=== PATIENT | female | born 1970 | race Caucasian/White ===

== ENCOUNTER → 2017-01-08 | Outpatient (CLI) | payer BC ==
[~2017-01-08] MED LIST: DEXL60CA4 PO; LEVO88TA3 PO; PREG1CAP28 PO; VENL75CA73 PO
[2017-01-08 15:15] LABS: BLOOD UREA NITROGEN 12 mg/dl (7-18); BUN/CREATININE RATIO 17.1 (10-20); CALCIUM 9.3 mg/dl (8.5-10.1); CARBON DIOXIDE 28 mmol/L (21-32); CHLORIDE 104 mmol/L (98-107); CREATININE 0.67 mg/dl (0.60-1.20); GLUCOSE 91 mg/dl (70-99); POTASSIUM 4.1 mmol/L (3.5-5.1); SODIUM 141 mmol/L (136-145)
[2017-01-08 15:24] LABS: BASO % 0.1 %; BASO ABS # 0.01 K/uL (0-0.2); COMPLETE YES; HEMATOCRIT 38.5 % (37-47); IG% 0.3 %; LYMPH % 35.2 %; LYMPH ABS # 2.74 K/uL (1.2-3.4); MEAN CELL VOLUME 86.9 fL (80-100); MEAN CORPUSCULAR HEMOGLOBIN 28.7 pg (25-34); MEAN PLATELET VOLUME 13.2 fL (7.4-10.4); MONO % 9.2 %; NEUT % 55.2 %; PLATELET COUNT 189 K/uL (130-400); RED BLOOD COUNT 4.43 M/uL (4.2-5.4); WHITE BLOOD COUNT 7.79 K/uL (4.8-10.8)
== END | disposition home or self-care (01) ==
LOC: C.LAB1850 11:59
PROVIDERS: ATTEND Surgery
DX: Z01.812 Encounter for preprocedural laboratory examination (principal); K21.9 Gastro-esophageal reflux disease without esophagitis

== ENCOUNTER → 2017-01-11 | Outpatient (CLI) | payer OTHER ==
--- NOTE | 2017-01-11 15:37 | DIAGNOSTIC IMAGING REPORT ---
(CHEST) THORAX WITHOUT CLINICAL HISTORY: K27.9 Peptic ulcer [id number] EPIGASTRIC PAIN. HIATAL HERNIA. COMPARISON STUDY: No previous studies for comparison. CT DOSE: 1153.21 mGycm TECHNIQUE: CT of the thorax was performed from the thoracic inlet to the lung bases. Images are reviewed in the axial, sagittal, and coronal planes. IV contrast was not administered for this examination. A dose lowering technique was utilized adhering to the principles of ALARA. FINDINGS: Thyroid: Imaged portions of the thyroid gland are normal in appearance. Thoracic aorta: The thoracic aorta is normal in course and caliber, noting standard 3 vessel arch anatomy. Heart: The heart is normal in size and configuration, without pericardial effusion. Lungs and pleural spaces: No pleural effusions are visualized. There is no focal pulmonary consolidation. There are no suspicious pulmonary nodules. Mediastinum: There is no evidence of pathologic adenopathy Jordyn: There is no evidence of pathologic hilar adenopathy given the limitations of a noncontrast study Axilla: There is no nodes of pathologic axillary lymphadenopathy Upper abdomen: There is a to small to characterize 8 mm hypodensity within the left hepatic lobe. There is a hiatal hernia measuring approximately 4 cm in diameter. Skeletal structures: There is a bone island within the T4 vertebra. IMPRESSION: 1. No evidence of focal pulmonary consolidation 2. No pleural effusions 3. No evidence of pathologic adenopathy 4. Small to moderate hiatal hernia Electronically signed by: Sven Chu M.D. 01/11/2017 3:36 PM Dictated Date/Time: 01/11/2017 3:29 PM
--- NOTE | 2017-01-11 15:57 | DIAGNOSTIC IMAGING REPORT ---
ABD WITH ORAL CONT ONLY (CT) HISTORY: 46 years-old Female acute peptic ulcer disease COMPARISON: CT chest of same day TECHNIQUE: Multiple axial CT images of the abdomen were obtained following the administration of oral contrast only. A dose lowering technique was used consistent with the principals of KEEGAN. FINDINGS: Imaged lung bases are clear. There is no pneumoperitoneum or pneumatosis. The imaged inferior cardiac chambers are unremarkable. There are 2 low attenuating 6 mm lesions noted of the lateral left hepatic lobe are too small to characterize however suggest cysts on this noncontrast study. There is no intrahepatic biliary ductal dilation. The gallbladder, spleen, pancreas and adrenal glands are unremarkable. Peripherally calcified 8 mm splenic arterial aneurysm is noted on image 79 series 7. Bilateral kidneys and ureters are unremarkable. Aorta is normal in caliber. No bulky adenopathy. Small to moderate sized hiatal hernia is noted. No focal gastric wall thickening or inflammatory stranding surrounding the stomach identified. There is no small bowel dilation or focal wall thickening identified. Diastases recti with small fat filled periumbilical hernia, diastases 1.2 cm. The bones appear intact. Endplate degenerative changes are seen throughout the spine. IMPRESSION: 1. No acute intra-abdominal abnormality identified. 2. [id number] sized hiatal hernia. 3. Peripherally calcified 8 mm splenic arterial aneurysm. The above report was generated using voice recognition software. It may contain grammatical, syntax or spelling errors. Electronically signed by: Toño Flowers M.D. 01/11/2017 3:55 PM Dictated Date/Time: 01/11/2017 3:51 PM
== END | disposition home or self-care (01) ==
LOC: C.CTS 14:24
PROVIDERS: ATTEND Surgery
DX: K27.9 Peptic ulcer, site unspecified, unspecified as acute or chronic, without hemorrhage or perforation (principal); K44.9 Diaphragmatic hernia without obstruction or gangrene; I72.8 Aneurysm of other specified arteries

== ENCOUNTER 2017-01-17 05:31 | Observation (INO) | payer BC, OTHER ==
[2017-01-11 08:38] VITALS: BMI 37.0
[~2017-01-17] VITALS: Ht 160 cm; Wt 101.6 kg
[2017-01-17 05:44] VITALS: BP 130/62; PULSE 77; TEMP 37; O2SAT 98; BMI 37.0
[2017-01-17] MEDS ORDERED: LACTATED RINGER'S 1000ML 1,000 ML IV SCH (06:00)
[2017-01-17] MEDS ORDERED: DEXAMETHASONE SOD INJ 4 MG/ML VIAL ONE (06:52)
[2017-01-17] MEDS ORDERED: LIDOCAINE HCL 2% 2 ML VIAL (20MG/ML) ONE (06:52)
[2017-01-17] MEDS ORDERED: SODIUM CHLORIDE 0.9% INJ 10 ML VIAL ONE ×3 (06:52→09:23)
[2017-01-17] MEDS ORDERED: FENTANYL CITRATE INJ 50 MCG/1 ML 2 ML VIAL ONE (06:52)
[2017-01-17] MEDS ORDERED: MIDAZOLAM HCL 1 MG/ML 2ML VIAL ONE (06:52)
[2017-01-17] MEDS ORDERED: ONDANSETRON INJ 2 MG/ML 2 ML VIAL ONE ×2 (06:52→10:41)
[2017-01-17] MEDS ORDERED: GLYCOPYRROLATE INJ 0.2 MG/ML VIAL ONE ×2 (06:52→09:25)
[2017-01-17] MEDS ORDERED: NEOSTIGMINE METHYLSULFATE 5 MG/5 ML SYR ONE (06:52)
[2017-01-17] MEDS ORDERED: PROPOFOL IV EMULSION 10 MG/ML 20 ML VIAL IV ONE (06:52)
[2017-01-17] MEDS ORDERED: HYDROmorphone INJ 2 MG/ML SYR/VIAL ONE (06:52)
--- NOTE | 2017-01-17 07:09 | History & Physical Bridge Note ---
H&P Re-Evaluation Bridge Note: I have examined the patient, reviewed the History & Physical and in the interval since the performance of the History & Physical I have noted the following changes of clinical significance: No changes noted
[2017-01-17] MEDS ORDERED: ATROPINE SULFATE 0.1 MG/ML 5ML SYR IV PRN (08:30)
[2017-01-17] MEDS ORDERED: EpHEDrine SULFATE INJ 50 MG/ML AMP IV PRN (08:30)
[2017-01-17] MEDS ORDERED: ONDANSETRON INJ 2 MG/ML 2 ML VIAL IV PRN ×2 (08:30→11:45)
[2017-01-17] MEDS ORDERED: HYDROmorphone INJ 1 MG/ML SYR IV PRN (08:30)
[2017-01-17] MEDS ORDERED: FENTANYL CITRATE INJ 50 MCG/1 ML 2 ML VIAL IV PRN (08:30)
[2017-01-17] MEDS ORDERED: PHENYLEPHRINE 100MCG/ML 5ML SYR ONE (08:33)
[2017-01-17] MEDS ORDERED: PHENYLEPHRINE HCL INJ 10 MG/ML VIAL ONE (08:33)
[2017-01-17] MEDS ORDERED: CEFAZOLIN SOD 1 GM VIAL ONE (08:33)
[2017-01-17] MEDS ORDERED: EpHEDrine SULFATE 50MG/5ML SYR ONE (09:25)
[2017-01-17] MEDS ORDERED: EpINEphrine INJ 1MG/ML AMP 1 MG/ML AMP ONE (09:25)
[2017-01-17] MEDS ORDERED: ALBUMIN HUMAN 5% 12.5 GM/250 ML VIAL IV ONE (09:44)
[2017-01-17] MEDS ORDERED: KETOROLAC TROMETHAMINE 30 MG/ML VIAL ONE (11:33)
[2017-01-17] MEDS ORDERED: OXYCODONE HCL IR 5 MG TAB (IMMEDIATE RELEASE) PO PRN (11:45)
[2017-01-17] MEDS ORDERED: MoRPHine SULFATE 2 MG/ML CARP IV PRN (11:45)
[2017-01-17] MEDS ORDERED: CEFAZOLIN IV 2,000 MG in DEXTROSE 5% 50ML 100 ML IV SCH (11:45)
--- NOTE | 2017-01-17 12:36 | Anesthesiology Progress Note ---
Anesthesia Post Op Note Date & Time Jan 17, 2017 at 12:36 Vital Signs Pain Intensity: 0 Vital Signs Past 12 Hours Date Time Temp Pulse Resp B/P (MAP) Pulse Ox O2 Delivery O2 Flow Rate FiO2 01/17/17 12:30 69 16 112/73 95 Nasal Cannula 4 01/17/17 12:20 87 14 121/88 95 Oxymask 15 01/17/17 12:10 101 14 135/89 95 Oxymask 15 01/17/17 12:03 36.6 98 14 121/77 96 Oxymask 15 01/17/17 05:44 37.0 77 18 130/62 (84) 98 Room Air Notes Mental Status: alert / awake / arousable, participated in evaluation Pt Amnestic to Procedure: Yes Nausea / Vomiting: adequately controlled Pain: adequately controlled Airway Patency, RR, SpO2: stable & adequate BP & HR: stable & adequate Hydration State: stable & adequate Anesthetic Complications: no major complications apparent
[2017-01-17 13:44] VITALS: BP 127/76; PULSE 88; TEMP 36.8; O2SAT 98; Ht 160 cm; Wt 101.6 kg
[2017-01-17] MEDS: D5W AND 1/2NSS 1,000 ML IV SCH (14:58)
[2017-01-17] MEDS: ACETAMINOPHEN IV 1,000 MG in EMPTY BAG 0 ML IV SCH ×2 (14:58→21:27)
[2017-01-17] MEDS: KETOROLAC TROMETHAMINE 15 MG/ML VIAL IV. SCH ×2 (15:05→21:29)
[2017-01-17] MEDS: METOCLOPRAMIDE HCL INJ 5 MG/ML 2 ML VIAL IV. SCH ×2 (15:05→21:27)
[2017-01-17] MEDS ORDERED: IV FLUIDS COMPLETED PRN (15:15)
[2017-01-17 16:00] VITALS: O2SAT 98
[2017-01-17 16:11] VITALS: BP 112/72; PULSE 108; TEMP 36.6; O2SAT 96
[2017-01-17] MEDS: CEFAZOLIN IV 2,000 MG in SYRINGE 0 ML IV SCH (16:20)
[2017-01-17] MEDS: DOCUSATE SODIUM 100 MG CAP PO SCH (19:19)
[2017-01-17] MEDS: PREGABALIN 75 MG CAP PO SCH (19:27)
[2017-01-17 19:28] VITALS: BP 106/61; PULSE 93; TEMP 36.7; O2SAT 93
[2017-01-17 23:44] VITALS: BP 110/73; PULSE 100; TEMP 37; O2SAT 92
[2017-01-18] MEDS: CEFAZOLIN IV 2,000 MG in SYRINGE 0 ML IV SCH (00:01)
[2017-01-18] MEDS: D5W AND 1/2NSS 1,000 ML IV SCH (00:46)
[2017-01-18 03:45] VITALS: BP 108/68; PULSE 112; TEMP 36.9; O2SAT 93
[2017-01-18] MEDS: KETOROLAC TROMETHAMINE 15 MG/ML VIAL IV. SCH (05:49)
[2017-01-18] MEDS: ACETAMINOPHEN IV 1,000 MG in EMPTY BAG 0 ML IV SCH ×2 (05:49→09:34)
[2017-01-18] MEDS: METOCLOPRAMIDE HCL INJ 5 MG/ML 2 ML VIAL IV. SCH (05:49)
[2017-01-18] MEDS ORDERED: LEVOTHYROXINE 88 MCG TAB PO SCH (06:00)
[2017-01-18 07:24] LABS: HEMATOCRIT 33.5 % (37-47); MEAN CORPUSCULAR HEMOGLOBIN 28.1 pg (25-34); MEAN CORPUSCULAR HGB CONC 32.2 g/dl (32-36); MEAN PLATELET VOLUME 11.9 fL (7.4-10.4); PLATELET COUNT 177 K/uL (130-400); RED BLOOD COUNT 3.85 M/uL (4.2-5.4); WHITE BLOOD COUNT 13.85 K/uL (4.8-10.8)
[2017-01-18 07:33] VITALS: BP 120/75; PULSE 91; TEMP 36.7; O2SAT 93
[2017-01-18 07:36] LABS: PROTHROMBIN TIME (PATIENT) 10.6 SECONDS (9.0-12.0)
[2017-01-18 08:01] LABS: CREATININE 0.69 mg/dl (0.60-1.20)
[2017-01-18] MEDS ORDERED: RXC5 PO ×2 (08:26)
--- NOTE | 2017-01-18 08:28 | Discharge Instructions ---
Discharge Instructions Date of Service Jan 18, 2017. Admission Reason for Admission: Esophageal Reflux, Hiatal Hernia Discharge Discharge Diagnosis / Problem: GERD, Hiatal hernia Discharge Goals Goal(s): Decrease discomfort (Use pain medications as needed.) Activity Recommendations Activity Limitations: as noted below Lifting Limitations: gradually increase as tolerated Exercise/Sports Limitations: gradually increase as tolerated May Resume Sexual Activity: when tolerated Shower/Bathe: tomorrow Driving or Machine Use: resume 3 days after discharge . Current Hospital Diet Patient's current hospital diet: Clear Liquid Diet Discharge Diet Recommended Diet: Full Liquid Diet Procedures Procedures Performed: Robotic Assisted Laparoscopic Toño Fundoplication with Intra-Operative Esophagogastroduodenoscopy Pending Studies Studies pending at discharge: no Medical Emergencies . Who to Call and When: Medical Emergencies: If at any time you feel your situation is an emergency, please call 911 immediately. . Non-Emergent Contact Non-Emergency issues call your: Surgeon Call Non-Emergent contact if: temperature is above 101.5 . "Provider Documentation" section prepared by Garett Alvarado. . VTE Core Measure Inpt VTE Proph given/why not?: Enoxaparin (Lovenox)SQ, SCD's
[2017-01-18 08:35] VITALS: BP 120/75; PULSE 91; TEMP 36.7; O2SAT 93
--- NOTE | 2017-01-18 08:42 | DISCHARGE SUMMARY ---
DISCHARGE DIAGNOSES: Hiatal hernia with gastroesophageal reflux disease, unresponsive to medical management. HOSPITAL COURSE: This is a very nice 46-year-old mother of 5 who has had unremitting symptoms of gastroesophageal reflux and has a nonhealing esophageal ulcer despite maximal medical management. She was referred to me by her director community organization and we feel that she is a candidate for a repair. On 01/17/2017, the patient underwent an uncomplicated robot-assisted laparoscopic repair of her hiatal hernia and a Toño fundoplication. She did very well, was watched on the floor. She was ambulating in the hallway. Tolerating liquids quite nicely without reflux and without dysphasia. I will see her back in the office next week with a barium swallow. I typically get a barium swallow the day after, however, this being Thanksgiving and we will get this before I see her in the office next week. Her incisions look good. Quite frankly, I think that she tolerated this entire procedure quite nicely. I will see her back next week. She is to call me if she has any issues.
[2017-01-18] MEDS: DOCUSATE SODIUM 100 MG CAP PO SCH (08:44)
[2017-01-18] MEDS: PREGABALIN 75 MG CAP PO SCH (08:46)
[2017-01-18] MEDS ORDERED: VENLAFAXINE HCL XR 75 MG CAPXR PO SCH (09:00)
[2017-01-18] MEDS ORDERED: ENOXAPARIN 40 MG/0.4 ML SYR SQ SCH (09:00)
[2017-01-18] MEDS ORDERED: PANTOprazole SOD 40 MG TAB PO SCH (09:00)
--- NOTE | 2017-01-19 07:06 | OPERATIVE REPORT ---
DATE OF OPERATION: 01/17/2017 PREOPERATIVE DIAGNOSIS: Hiatal hernia with gastroesophageal reflux, unresponsive to medication. POSTOPERATIVE DIAGNOSIS: Same. PROCEDURE: Robotic-assisted laparoscopic repair of hiatal hernia with Toño fundoplication. SURGEON: Dr. Alvarado ASSOCIATE BROKER: TALYA Wolfe. ANESTHESIA: General anesthesia endotracheal intubation. INDICATION FOR PROCEDURE AND FINDINGS: This is a 46-year-old female who has 5 children, has been troubled with reflux for many years. She is on maximal therapy and has an esophageal ulcer, which is not healing. She also had pylorus ulcers, which did heal with proton pump inhibitors. She was referred for an antireflux procedure. We had a long talk in the office and set her up for surgery today. On 01/17/2017, the patient underwent an uncomplicated robotic Toño fundoplication. I did do a crural repair with 2 sutures. I also removed her rather small hernia sac. She tolerated it well. One problem we did run into was she dropped her heart rate, which may have been due to her anesthetic agents. She quickly came back and we had no further problems in the rest of the case. Her heart rate and her blood pressure dropped and it was transient. She tolerated it well and was extubated in the room. DESCRIPTION OF PROCEDURE: The patient brought to the operating room and laid in supine position. General anesthesia induced and endotracheal intubation was performed. After prepping and draping in the usual sterile fashion, a 5-mm Veress needle was placed a few centimeters above the umbilicus in the midline. This was used to insufflate air into the abdomen and then a 12-mm port was placed and a camera was placed. She had some adhesions inferiorly, but really nothing anteriorly. The left lobe of the liver was rather large. We placed a 5-mm retractor in the far right lateral aspect and used the Pretzel retractor to pull the left lobe of the liver anteriorly. This allowed good visualization of the GE junction. An 8-mm port was placed to the right of the midline and an 8-mm port was placed in the left subcostal and more lateral abdominal area. We then placed a 12-mm account assistant's port down near the umbilicus on the right. With proper retraction, we then came down and I immediately took the peritoneum off the anterior hiatal area and came down upon the esophagus. There really were no adhesions here. I was able to get around the esophagus quite easily and dissected out the right crura and the left crura using a Harmonic scalpel. We had excellent visualization. I did remove the sac and was able to pull this down rather easily and remove it mostly bluntly. We identified the posterior vagus nerve and care was taken to avoid injury to it. Attention was then turned towards the greater curvature and using a Harmonic scalpel, we took down the short gastrics all the way up to the diaphragmatic crura on the left. This freed up quite nicely. A 1-inch [place] was placed around the stomach and pulled down. We had plenty of esophagus in the abdomen. A 0 silk was used with 2 separate interrupted sutures to reapproximate the crura posteriorly and really this was done under no tension. Attention was then turned towards the wrap. I marked an area about 6 cm from the GE junction along the posterior fundus wall and then 6 cm from the GE junction on the anterior wall with long sutures. I then pulled the posterior rock around the front and this came quite nicely. A 2-0 silk was then used to pull the anterior and the posterior fundus together and I also got the body of the esophagus just above the GE junction here. I then put 2 more sutures to reapproximate the fundus over this and also sutured to the diaphragmatic crura. We really got into no bleeding with this. I then performed an upper endoscopy while she was still under anesthesia and insufflated air. I really did not see much in the way of a distal esophageal ulcer, which was her presenting complaint. We were able to get through the repair quite nicely and there was no evidence of a hiatal hernia. I did not see any ulcerations either. We insufflated air and there was no leak. I then sucked out the air and the gastric contents and removed the upper endoscope. All the ports were removed after the robot has been undocked. A #1 Maxon was used to close the two 12-mm ports. These fascial repairs were done with the use of an Endo Close. The 8-mm ports and the single 5-mm port did not have closure of their fascial defects. A 4-0 Monocryl was used in running subcuticular fashion to approximate the wound edges. She tolerated it quite well. Darion Xiong was my PA for the case. Mr. Xiong was there for the duration of the case and was instrumental in handing off instruments and using the account assistant's port to pass suture and pull the camera and we did not have it attached to the robot. He also closed the incisions at the end. I attest to the content of the Intraoperative Record and any orders documented therein. Any exceptions are noted below. JOYA
== END 2017-01-18 10:07 | disposition home or self-care (01) ==
LOC: C.ACU 05:31 → C.2T 11:43 → EDBEDREQ 12:33 → ENRESERV 13:01
PROVIDERS: ADMIT Surgery; ATTEND Surgery
DX: K44.9 Diaphragmatic hernia without obstruction or gangrene (principal); K21.9 Gastro-esophageal reflux disease without esophagitis; E66.9 Obesity, unspecified; Z98.890 Other specified postprocedural states; Z90.710 Acquired absence of both cervix and uterus; Z83.79 Family history of other diseases of the digestive system; Z82.0 Family history of epilepsy and other diseases of the nervous system; Z79.899 Other long term (current) drug therapy; Z68.38 Body mass index [BMI] 38.0-38.9, adult
CPT/HCPCS: 49654; S2900

== ENCOUNTER → 2017-01-24 | Outpatient (CLI) | payer OTHER ==
[~2017-01-24] MED LIST changes: +RXC5 PO
--- NOTE | 2017-01-24 11:34 | DIAGNOSTIC IMAGING REPORT ---
SINGLE CONTRAST BARIUM ESOPHAGRAM CLINICAL HISTORY: Follow-up status post recent Toño fundoplication. COMPARISON STUDY: Chest CT dated 01/11/2017. TECHNIQUE: A single contrast barium esophagram is performed. Multiple spot images of the esophagus are acquired both upright and prone. FINDINGS: The patient swallowed barium without difficulty. There was delayed transit of contrast into the stomach. The mucosal pattern is normal as visualized on this single contrast examination. Mild dysmotility is observed. There is no evidence of intrinsic or extrinsic mass lesion. No aspiration was seen. The gastroesophageal junction distended normally. No gastroesophageal reflux was observed during the examination. The configuration of the gastric fundus is consistent with the history of fundoplication. No hiatal hernia is identified. No contrast leakage is identified. Fluoroscopy time: 1.7 minutes. Fluoroscopic images: 26 IMPRESSION: 1. No hiatal hernia is identified. The configuration of the stomach is consistent with the reported history of recent fundoplication. 2. There is slightly delayed passage of contrast into the stomach, likely related to postoperative edema. 3. Mild dysmotility is observed. Electronically signed by: Catrachito Childers M.D. 01/24/2017 11:32 AM Dictated Date/Time: 01/24/2017 11:30 AM
== END | disposition home or self-care (01) ==
LOC: C.RAD 10:51
PROVIDERS: ATTEND Surgery
DX: K21.9 Gastro-esophageal reflux disease without esophagitis (principal)